=== PATIENT | female | born 1990 | race Caucasian/White ===

== ENCOUNTER 2024-04-24 15:46 | Emergency (ER) | payer MEDICAID ==
[~2024-04-24] VITALS: Ht 170.2 cm; Wt 67.0 kg
[2024-04-24 15:54] VITALS: O2SAT 100
[2024-04-24 16:38] LABS: BASOPHILS % 0.8 % (0.0-2.0); DIFFERENTIAL COMMENT 0; EOSINOPHILS % 2.2 % (0.0-5.0); HEMATOCRIT. 36.5 % (36.0-48.0); HEMOGLOBIN. 12.5 g/dL (12.0-16.0); LYMPHOCYTES % 29.8 % (20.0-50.0); MEAN CORPUSCULAR HEMOGLOBIN 29.2 pg (28.0-32.0); MEAN CORPUSCULAR HGB CONC 34.2 g/dL (31.0-37.0); MEAN CORPUSCULAR VOLUME 85.3 fL (81.0-99.0); MEAN PLATELET VOLUME 10.7 fl (7.4-10.4); MONOCYTES % 8.8 % (2.0-8.0); NEUTROPHILS % 58.4 % (40.0-76.0); PLATELET 221 x1000/uL (130-400); RED BLOOD CELL COUNT 4.28 mill/uL (4.2-5.4); RED CELL DISTRIBUTION WIDTH 13.5 % (11.6-14.6); WHITE BLOOD COUNT 7.9 x1000/uL (4.5-11.0)
[2024-04-24] MEDS ORDERED: ACET-2708 MT (18:16)
[2024-04-24 18:52] VITALS: BP 124/69; PULSE 76; RESP 12; TEMP 98.1
== END 2024-04-24 18:54 | disposition home or self-care (01) ==
LOC: ER 15:46
DX: R10.30 Lower abdominal pain, unspecified (principal); Z98.890 Other specified postprocedural states
CPT/HCPCS: 36415; 76830; 76856; 81025; 85025; 86850; 86900; 99284

== ENCOUNTER 2024-12-07 11:04 | Emergency (ER) | payer MEDICAID ==
[~2024-12-07] VITALS: Ht 175.3 cm; Wt 63.0 kg
[~2024-12-07 11:04] MED LIST: ACET-2708 MT
[2024-12-07 11:14] VITALS: O2SAT 99
[2024-12-07 13:24] LABS: CLARITY URINE CLEAR (CLEAR); COLOR URINE YELLOW (YELLOW); GLUCOSE URINE NEGATIVE (NEGATIVE); KETONES URINE NEGATIVE (NEGATIVE); LEUKOCYTE ESTERASE URINE 2+ (NEGATIVE); NITRITE URINE NEGATIVE (NEGATIVE); OCCULT BLOOD URINE NEGATIVE (NEGATIVE); PROTEIN URINE NEGATIVE (NEGATIVE); SPECIFIC GRAVITY URINE 1.021 (1.005-1.030)
[2024-12-07 13:55] LABS: BACTERIA URINE 2+; RBC URINE 0-2 /hpf (0-2); SQUAMOUS EPITHELIAL CELL URINE FEW /lpf (RARE/1+); WBC URINE 15-25 /hpf (0-2); YEAST URINE NONE SEEN
[2024-12-07] MEDS ORDERED: CEFP200T14 MT (13:58)
[2024-12-07 14:05] VITALS: BP 125/70; PULSE 74; RESP 18; TEMP 36.72516; O2SAT 99
== END 2024-12-07 14:06 | disposition home or self-care (01) ==
LOC: ER 11:04
DX: N39.0 Urinary tract infection, site not specified (principal); Z98.890 Other specified postprocedural states
CPT/HCPCS: 81003; 81025; 87077; 87186; 99283

== ENCOUNTER 2025-08-16 22:33 | Emergency (ER) | payer MEDICAID, BC ==
[~2025-08-16] VITALS: Ht 165.1 cm; Wt 64.0 kg
[~2025-08-16 22:33] MED LIST changes: +CEFP200T14 MT
[2025-08-16 22:39] VITALS: TEMP 37; O2SAT 98
[2025-08-16 23:47] LABS: BASOPHILS % 0.4 % (0.0-2.0); EOSINOPHILS % 0.6 % (0.0-5.0); HEMATOCRIT. 37.2 % (36.0-48.0); HEMOGLOBIN. 11.9 g/dL (12.0-16.0); LYMPHOCYTES % 10.3 % (20.0-50.0); MEAN PLATELET VOLUME 9.6 fl (7.4-10.4); MONOCYTES % 4.0 % (2.0-8.0); NEUTROPHILS % 84.7 % (40.0-76.0); PLATELET 231 x1000/uL (130-400); RED BLOOD CELL COUNT 4.71 mill/uL (4.2-5.4); RED CELL DISTRIBUTION WIDTH 15.1 % (11.6-14.6)
[2025-08-16 23:57] LABS: CREATININE 0.9 mg/dL (0.6-1.0)
[2025-08-16 23:58] LABS: UREA NITROGEN BLOOD 11 mg/dL (9-23)
[2025-08-17] MEDS: DIPHENHYDRAMINE 50MG/ML VIAL IM ONE (00:01)
[2025-08-17] MEDS: METOCLOPRAMIDE HCL 10MG/2ML VIAL IM ONE (00:01)
[2025-08-17] MEDS: KETOROLAC 15MG/ML VIAL IM ONE (00:02)
[2025-08-17 02:00] VITALS: BP 107/78; PULSE 71; RESP 12; O2SAT 100
== END 2025-08-17 02:01 | disposition home or self-care (01) ==
LOC: ER 22:33
DX: G43.909 Migraine, unspecified, not intractable, without status migrainosus (principal); Z98.890 Other specified postprocedural states; Z79.899 Other long term (current) drug therapy
CPT/HCPCS: 80048; 81025; 85025; 36415; 70450; 99285; 96372; J1200; J1885; J2765; Z7610